=== PATIENT | male | born 1990 | race Caucasian/White ===

== ENCOUNTER 2017-01-18 17:29 | Emergency (ER) | payer MEDICAID ==
--- NOTE | 2017-01-18 19:46 | C.PDOC ---
History Of Present Illness 26 year old male presents to the ED for evaluation of left foot pain which began around 3 days ago. Patient states pain is to his lateral foot and radiates upward towards his ankle. Patient states his pain began while he was sitting and then reoccurred the following day when he was engaging in a lot of walking. He states pain has improved today. He denies erythema, rash, extremity numbness/weakness, or recent trauma. Time Seen by Provider: 01/18/17 19:18 Chief Complaint (Nursing): Lower Extremity Problem/Injury History Per: Patient History/Exam Limitations: no limitations Onset/Duration Of Symptoms: Days Current Symptoms Are (Timing): Still Present Pain Scale Rating Of: 2 - Ankle/Foot Description Of Injury: denies: Fell, Struck With Object, Struck Against Object, Twisted, Laceration Alleviating Factor(s): Elevation Past Medical History Reviewed: Historical Data, Nursing Documentation, Vital Signs Vital Signs: Last Vital Signs Temp 97.9 F 01/18/17 19:59 Pulse 67 01/18/17 19:59 Resp 20 01/18/17 19:59 BP 94/62 L 01/18/17 19:59 Pulse Ox 97 01/18/17 20:17 - Medical History PMH: No Chronic Diseases Surgical History: No Surg Hx Family History: States: Unknown Family Hx - Social History Hx Alcohol Use: No Hx Substance Use: No - Immunization History Hx Tetanus Toxoid Vaccination: No Hx Influenza Vaccination: No Hx Pneumococcal Vaccination: No Review Of Systems Constitutional: Negative for: Fever, Weakness Musculoskeletal: Positive for: Foot Pain (left) Skin: Negative for: Rash, Other (erythema ) Neurological: Negative for: Weakness, Numbness Physical Exam - Physical Exam Appears: Non-toxic, No Acute Distress Skin: Normal Color, Warm, Dry Head: Atraumatic, Normacephalic Eye(s): bilateral: Normal Inspection Extremity: Normal ROM, No Tenderness, Capillary Refill (less than 2 seconds ), No Deformity, No Swelling Extremity: Bilateral: Normal Color And Temperature Pulses: Left Dorsalis Pedis: Normal, Right Dorsalis Pedis: Normal Neurological/Psych: Oriented x3, Normal Speech, Normal Motor, Normal Sensation Gait: Steady ED Course And Treatment O2 Sat by Pulse Oximetry: 97 (on RA) Pulse Ox Interpretation: Normal Progress Note: Patient received Motrin PO. Medical Decision Making Medical Decision Making: The patient has a normal exam and states he has improved. Xrays are not indicated at this time. Disposition - Disposition Referrals: [facility] [Outside] Podiatry Clinic [Outside] Disposition: HOME/ ROUTINE Disposition Time: 19:46 Condition: GOOD Additional Instructions: Follow up with the Podiatry doctor/clinic within 1-2 days. return if worsened. 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 - Scribe Statement The provider has reviewed the documentation as recorded by the Scribe (Mariah Washington) All medical record entries made by the Scribe were at my direction and personally dictated by me. I have reviewed the chart and agree that the record accurately reflects my personal performance of the history, physical exam, medical decision making, and the department course for this patient. I have also personally directed, reviewed, and agree with the discharge instructions and disposition.
[2017-01-18 20:00] VITALS: BP 94/62; PULSE 67; RESP 20; TEMP 97.9
[2017-01-18 20:07] VITALS: O2SAT 97
== END 2017-01-18 20:00 | disposition home or self-care (01) ==
LOC: C.ER 17:29
DX: M79.672 Pain in left foot (principal)